=== PATIENT | female | born 1985 | race Hispanic/Latino ===

== ENCOUNTER 2025-01-12 15:14 | Emergency (ER) | payer OTHER ==
[~2025-01-12] VITALS: Ht 162.6 cm; Wt 90.7 kg
[2025-01-12 16:00] LABS: APPEARANCE,URINE CLOUDY (CLEAR); BILIRUBIN,URINE NEGATIVE (NEGATIVE); COLOR,URINE YELLOW (YELLOW); GLUCOSE, URINE (UA) NEGATIVE (NEGATIVE); KETONES,URINE NEGATIVE (NEGATIVE); LEUKOCYTE ESTERASE ,URINE 500 Leu/uL (NEGATIVE); NITRATE,URINE 1+ (NEGATIVE); OCCULT BLOOD,URINE MODERATE (NEGATIVE); PH,URINE 7.5 (5.0-8.0); PROTEIN,URINE 50 mg/dL (NEGATIVE)
[2025-01-12 16:01] LABS: BASOPHILS # (AUTO) 0.03 K/uL (0.00-0.20); BASOPHILS % (AUTO) 0.3 % (0.0-5.0); EOSINOPHILS % (AUTO) 2.8 % (0.0-8.0); HEMATOCRIT 40.4 % (36-48); IMMATURE GRANULOCYTE ABSOLUTE 0.06 K/uL (0-1); LYMPHOCYTES # (AUTO) 3.1 K/uL (1.0-4.8); LYMPHOCYTES % (AUTO) 28.8 % (21.0-51.0); MEAN CORPUSCULAR HEMOGLOBIN 30.1 pg (27.0-33.0); MEAN CORPUSCULAR HGB CONC 33.2 g/dL (32.0-36.0); MEAN CORPUSCULAR VOLUME 90.8 fL (79-99); MONOCYTES # (AUTO) 0.6 K/uL (0.1-1.0); MONOCYTES % (AUTO) 5.2 % (3.0-13.0); NEUTROPHILS # (AUTO) 6.8 K/uL (1.8-7.7); NEUTROPHILS % (AUTO) 62.3 % (40.0-77.0); PLATELET COUNT (AUTO) 357 K/uL (130-400); RED BLOOD CELL COUNT(AUTO) 4.45 MIL/uL (4.00-5.50); RED CELL DISTRIBUTION WIDTH 13.6 % (11.0-15.5); WHITE BLOOD COUNT (AUTO) 10.9 K/uL (4.8-10.8)
[2025-01-12 16:06] LABS: BACTERIA,URINE RARE /HPF (None Seen); MUCUS,URINE FEW LPF (None Seen); NON-SQUAMOUS EPITHELIAL CELL 2 /HPF (0-2); RBC,URINE 51-100 /HPF (0-1); SQUAMOUS EPITHELIAL CELL,UR FEW /HPF (0-2); UNCLASSIFIED CRYSTAL 1 /HPF (None Seen); WBC CLUMP FEW /HPF (0-1); WBC,URINE TNTC /HPF (0-1)
[2025-01-12 16:08] LABS: CREATININE 0.6 mg/dL (0.5-1.0)
--- NOTE | 2025-01-12 16:33 | HMCIMG ---
ABD 1VW REASON: Constipation FINDINGS: Single image of the abdomen was obtained. There is a large amount solid thickened material in the a sending and transverse colon. This could represent constipation. There is no evidence of fecal impaction. Bowel gas pattern is normal. Bones and soft tissues appear unremarkable. There are no abnormal calcifications. There is no evidence of foreign body. IMPRESSION: 1. Large amount solid fecal material a sending and transverse colon which could represent constipation.
[2025-01-12] MEDS ORDERED: CEPH500T PO (17:23)
--- NOTE | 2025-01-12 17:23 | ERN ---
General Chief Complaint: Urinary Frequency Stated Complaint: UNABLE TO URINATE Time Seen by MD: 15:16 Time Seen by Midlevel: 15:16 Source: patient History of Present Illness Initial Comments 39-year-old female who presents to the emergency department due to frequent urination onset last night. Patient reports small urine output and continues to have sensation of needing to urinate. Reports suprapubic pain, dysuria, constipation (x4days) but denies any back pain, fever or further associated symptoms. LMP 12/28/2024. Allergies: Coded Allergies: No Known Allergies (Unverified Allergy, Unknown, 01/12/25) Home Meds Active Scripts Lactulose (Lactulose) 10 Gram/15 Ml Solution, 10 GM PO DAILY for 7 Days, #105 ML Prov:MARU SILVA 01/12/25 Cephalexin (Cephalexin) 500 Mg Tablet, 500 MG PO BID for 7 Days, #14 TAB Prov:MARU SILVA 01/12/25 Past Medical History Past Medical History: Diabetes-Type II, GERD Past Surgical History: None Female( History) LMP: Dec 31, 2023 ROS Dictation Constitutional: Negative for fever,chills, and weight loss Eyes: Negative for injury, pain,redness, and discharge ENT: Negative for injury,pain or swelling Cardiovascular: Negative for chest pain, palpitations, and edema Respiratory: Negative for shortness of breath, cough, and wheezing, Abdomen/GI: Positive for suprapubic pain, constipation Negative for abdominal pain, nausea, vomiting, diarrhea Back: Negative for injury and pain : Positive for dysuria, frequent urination Negative for bleeding or discharge MS/Extremity: Negative for injury and deformity Skin: Negative for rash, and discoloration Neuro: Negative for headache, weakness, numbness, tingling, and seizure Psych: Negative for suicide ideation, homicidal ideation, and hallucinations Physical Exam Physical Exam Dictation General: awake, alert, no acute distress Head/Face: Normocephalic, atraumatic Eyes: normal conjunctiva Neck: Normal range of motion, supple Cardiovascular: RRR, normal S1/S2 Respiratory: CTAB, no respiratory distress, No rales or wheezes Abdomen: Soft, mild suprapubic tenderness, non-distended, no guarding or rebound. Skin: Warm, dry, normal turgor, no rash MS/Extremity: Pulses equal, no cyanosis, neurovascular intact, FROM Neuro: COAx4, GCS 15, no neurological deficits, normal gait, Psych: Normal behavior, mood, and affect normal Results Laboratory and Microbiology Lab and Micro Result Laboratory Tests Test 01/12/25 15:33 01/12/25 15:47 Urine Color YELLOW (YELLOW) Urine Appearance CLOUDY (CLEAR) H Urine pH 7.5 (5.0-8.0) Urine Specific [place] 1.025 (1.001-1.031) Urine Protein 50 mg/dL (NEGATIVE) H Urine Glucose (UA) NEGATIVE mg/dL (NEGATIVE) Urine Ketones NEGATIVE mg/dL (NEGATIVE) Urine Occult Blood MODERATE (NEGATIVE) H Urine Nitrate 1+ (NEGATIVE) H Urine Bilirubin NEGATIVE mg/dL (NEGATIVE) Urine Urobilinogen 2.0 mg/dL (0.2-1.0) H Urine Leukocyte Esterase 500 Valerie/uL (NEGATIVE) H Urine RBC 51-100 /HPF (0-1) H Urine WBC TNTC /HPF (0-1) H Urine WBC Clumps (Auto) FEW /HPF (0-1) Urine Squamous Epithelial Cells FEW /HPF (0-2) Urine Non-Squamous Epithelial Cells 2 /HPF (0-2) Urine Other Crystals (Auto) 1 /HPF (None Seen) Urine Bacteria RARE /HPF (None Seen) Urine HCG, Qualitative NEGATIVE (NEGATIVE) White Blood Count 10.9 K/uL (4.8-10.8) H Red Blood Count 4.45 MIL/uL (4.00-5.50) Hemoglobin 13.4 g/dL (12.0-16.0) Hematocrit 40.4 % (36-48) Mean Corpuscular Volume 90.8 fL (79-99) Mean Corpuscular Hemoglobin 30.1 pg (27.0-33.0) Mean Corpuscular Hemoglobin Concent 33.2 g/dL (32.0-36.0) Red Cell Distribution Width 13.6 % (11.0-15.5) Platelet Count 357 K/uL (130-400) Mean Platelet Volume 10.2 fL (7.5-10.5) Immature Granulocyte % (Auto) 0.6 % (0-1) Neutrophils (%) (Auto) 62.3 % (40.0-77.0) Lymphocytes (%) (Auto) 28.8 % (21.0-51.0) Monocytes (%) (Auto) 5.2 % (3.0-13.0) Eosinophils (%) (Auto) 2.8 % (0.0-8.0) Basophils (%) (Auto) 0.3 % (0.0-5.0) Neutrophils # (Auto) 6.8 K/uL (1.8-7.7) Lymphocytes # (Auto) 3.1 K/uL (1.0-4.8) Monocytes # (Auto) 0.6 K/uL (0.1-1.0) Eosinophils # (Auto) 0.30 K/uL (0.00-0.70) Basophils # (Auto) 0.03 K/uL (0.00-0.20) Absolute Immature Granulocyte (auto 0.06 K/uL (0-1) Nucleated Red Blood Cells 0.0 % (0.0-0.19) Sodium Level 138 mmol/L (136-145) Potassium Level 4.0 mmol/L (3.5-5.1) Chloride Level 104 mmol/L (101-111) Carbon Dioxide Level 31 mmol/L (21-32) Blood Urea Nitrogen 12 mg/dL (7-18) Creatinine 0.6 mg/dL (0.5-1.0) Glomerular Filtration Rate Calc 118 mL/min (>90) Random Glucose 99 mg/dL (70-105) Total Calcium 8.6 mg/dL (8.5-10.1) Labs Reviewed?: Yes MDM MDM: Differential diagnosis: UTI, urine retention, Rationale: 39-year-old female who presents to the emergency department due to frequent urination onset last night. Patient reports small urine output and continues to have sensation of needing to urinate. Reports suprapubic pain, dysuria, constipation (x4days) but denies any back pain, fever or further associated symptoms. Per physical examination patient has mild suprapubic tenderness, no CVA tenderness, in no acute distress. Labs obtained are nonspecific. Abdominal x- rays indicate constipation. UA indicates a urinary tract infection. Bladder scan performed in the ED with 2 mL in the bladder. Rocephin administered in the ED and antibiotics prescribed for outpatient treatment. Patient was educated on findings and diagnosis. Advised to follow up with PCP. Return to the emergency department if any worsening symptoms. Patient verbalized understanding. Patient stable for discharge. There are no social concerns with this patient. I independently interpreted the test that were performed, results were reviewed by me and considered findings on radiology if ordered. Medical management and examination interpretation discussions were had by me with other qualified healthcare professionals as indicated for the patient's care. ED Course Orders Procedure Category Date Status Time ,Urine Test LAB 01/12/25 Complete 15:28 Urinalysis LAB 01/12/25 Complete W/Microscopic 15:30 Cbc With Differential LAB 01/12/25 Complete 15:34 Basic Metabolic Panel LAB 01/12/25 Complete 15:34 Abd 1vw RAD 01/12/25 Resulted 15:34 Bladder Scan CPOE 01/12/25 Transmitted 15:34 Culture Urine SHIMA 01/12/25 In Process 16:01 Ceftriaxone 1g Vial PHA 01/12/25 Complete (Rocephine 1g Inj) 16:30 Current Medications Medications (Trade) Dose Ordered Sig/[place] Route PRN Reason Start Time Stop Time Status Last Admin Dose Admin Ceftriaxone Sodium (ROCEphine 1G INJ) 1 gm ONCE ONCE IVPB 01/12/25 16:30 01/12/25 16:31 DC 01/12/25 17:40 Vital Signs Date Time Temp Pulse Resp B/P (MAP) Pulse Ox O2 Delivery O2 Flow Rate FiO2 01/12/25 17:43 98.2 61 16 130/66 98 Room Air* 0 21 01/12/25 15:20 98.2 61 16 130/66 98 Room Air 0 DX & DISP Disposition: Discharge Departure Impression: Primary Impression: Urinary tract infection Additional Impression: Constipation Condition: Stable Scripts Lactulose (Lactulose) 10 Gram/15 Ml Solution 10 GM PO DAILY for 7 Days, #105 ML Prov: MARU SILVA 01/12/25 Cephalexin (Cephalexin) 500 Mg Tablet 500 MG PO BID for 7 Days, #14 TAB Prov: MARU SILVA 01/12/25 Additional Instructions: Discharge home. Rest. Follow up with primary care in 24 hours. Return to the ER for any acute changes or worsening symptoms. If any medications were prescribed take as directed. Okay to continue home medications unless otherwise discussed during your visit in the emergency room today. Patient was also advised to follow-up with primary care physician in 1 to 2 days for continued monitoring. Referrals: SELF,REFERRAL (PCP) I participated in the following activities of this patient's care: For this p atient encounter, I reviewed the PA or RESIDENTIAL REAL ESTATE ASSISTANT documentation, treatment plan, and medical decision making. I did not have [id number] time with this patient. I will sign as the reviewing Dr. And agree with the treatment plan and disposition. MARU SILVA Jan 12, 2025 17:23
[2025-01-12] MEDS ORDERED: LACT-441 PO (17:36)
[2025-01-12] MEDS: cefTRIAXone 1G VIAL IVPB ONE (17:40)
[2025-01-12 17:43] VITALS: BP 130/66; PULSE 61; RESP 16; TEMP 98.3; O2SAT 98
== END 2025-01-12 18:08 | disposition home or self-care (01) ==
LOC: EDH 15:14
DX: N39.0 Urinary tract infection, site not specified (principal); K59.00 Constipation, unspecified; K21.9 Gastro-esophageal reflux disease without esophagitis; E11.9 Type 2 diabetes mellitus without complications; Z79.899 Other long term (current) drug therapy
CPT/HCPCS: 99284; 96374; 80048; 85025; 87086 ×2; 87186; 81001; 81025; 36415; 74018; J0696